=== PATIENT | female | born 1950 | race Two or more races ===

== ENCOUNTER 2024-03-03 19:58 | Emergency (ER) | payer OTHER ==
[~2024-03-03] VITALS: Ht 154.9 cm; Wt 73.5 kg
[2024-03-03] MEDS ORDERED: INSULIN REGULAR, HUMAN 1,000 UNIT/10 ML UNITS SUBCUTANEO ONE (20:30)
[2024-03-03] MEDS ORDERED: 0.9 % SODIUM CHLORIDE 1,000 ML IV ONE (20:30)
[2024-03-03] MEDS ORDERED: GLIMEPIRIDE4 M1 (20:31)
[2024-03-03] MEDS ORDERED: METFORMIN HCL1000 M2 (20:31)
[2024-03-03] MEDS ORDERED: COZAAR25 MG (20:31)
[2024-03-03] MEDS ORDERED: FOLIC ACID1 MG (20:32)
[2024-03-03 20:55] LABS: HEMATOCRIT 39.2 % (36.0-45.00); HEMOGLOBIN 13.2 g/dL (12.0-15.00); MEAN CELL VOLUME 80.5 fL (80.00-100.00); MEAN CORPUSCULAR HGB CONC 33.6 g/dl (32.0-36.0); PLATELET COUNT 191 K/uL (150-450); RED BLOOD COUNT 4.87 M/uL (4.00-6.00)
[2024-03-03] MEDS ORDERED: CLEVIDIPINE BUTYRATE 50 MG/100 ML VIAL IV SCH (21:00)
[2024-03-03] MEDS ORDERED: FAMOtidine 10 MG/ML (4ML VIAL) IV ONE (21:00)
[2024-03-03 21:01] LABS: INR 1.07; PARTIAL THROMBOPLASTIN TIME 26.7 SECONDS (22.0-34.0); PROTHROMBIN TIME 11.6 SECONDS (9.0-11.5)
[2024-03-03 21:18] LABS: URINE APPEARANCE Clear; URINE BILIRRUBIN Negative (NEGATIVE); URINE BLOOD Negative; URINE COLOR Yellow; URINE LEUKOCYTE Negative; URINE NITRATE Negative; URINE PROTEIN 30 (NEGATIVE); URINE UROBILINOGEN 0.2 E.U./dl
[2024-03-03 21:18] LABS: ALBUMIN 4.3 gm/dL (3.4-5.0); BILIRUBIN TOTAL 0.49 mg/dL (0.3-1.2); CALCIUM 9.6 mg/dL (8.5-10.1); CREATININE SERUM 0.8 mg/dL (0.55-1.02); GFR 70.71; GLOBULINA 3.9 G/DL (2.4-3.5); POTASSIUM 3.82 mEq/L (3.5-5.1); TOTAL PROTEIN 8.2 gm/dL (6.4-8.2)
[2024-03-03 21:22] LABS: URINE BACTERIA 3410.4 uL (0.0-1933); URINE EPITHELIAL CELLS 2.9 uL (0.0-38.8); URINE RBC 10.5 uL (0.0-20.8); URINE WBC 3.5 uL (0.0-23.2)
[2024-03-03 21:28] LABS: URINE CAST 0.15 uL (0.0-1.40); URINE GLUCOSE 500 MG/DL (NEGATIVE); URINE KETONE 40 (NEGATIVE)
[2024-03-03] MEDS ORDERED: ONDANSETRON HCL 2 MG/ML VIAL IV STA (21:32)
[2024-03-03 21:33] LABS: ABG pCO2 33.9 mmHg (35-45)
[2024-03-03 21:34] LABS: ABG PO2 94.1 mmHg (80-100); BASE EXCESS -1 mmol/l; BICARBONATE 0 mmol/l (23-25); SaO2 97.6 %; Tco2 22.4 mmol/l; o2 23.4 %
[2024-03-03 21:35] LABS: allen test SATISFACTORY; puncture site RADIAL RIGHT
[2024-03-03] MEDS ORDERED: ENALAPRILAT DIHYDRATE 2.5 MG/2 ML VIAL IV STA (22:18)
[2024-03-03] MEDS ORDERED: LABETALOL HCL 20MG/4ML SYRINGE IV ONE (23:45)
[2024-03-03] MEDS ORDERED: INSULIN GLARGINE,HUM.REC.ANLOG 1,000 UNITS/10 ML UNITS SUBCUTANEO ONE (23:45)
[2024-03-04 02:06] VITALS: BP 164/76; O2SAT 98
== END 2024-03-04 02:08 | disposition home or self-care (01) ==
LOC: ER 19:58
PROVIDERS: General Practice
DX: I10 Essential (primary) hypertension (principal); E11.9 Type 2 diabetes mellitus without complications; Z79.84 Long term (current) use of oral hypoglycemic drugs; Z88.5 Allergy status to narcotic agent; Z88.6 Allergy status to analgesic agent
CPT/HCPCS: 36415; 71045; 82803; 93005; 96365; 96366; 99283; J2405; J3490 ×4; J7030